=== PATIENT | female | born 2000 | race Hispanic/Latino ===

== ENCOUNTER 2022-06-25 02:10 | Emergency (ER) | payer OTHER ==
[~2022-06-25] VITALS: Ht 149.9 cm; Wt 63.0 kg
[2022-06-25 02:15] VITALS: BP 141/79
== END 2022-06-25 02:37 | disposition left against medical advice (07) ==
LOC: EDH 02:10
DX: Z00.00 Encounter for general adult medical examination without abnormal findings (principal); Z53.21 Procedure and treatment not carried out due to patient leaving prior to being seen by health care provider